=== PATIENT | male | born 1980 | race American Indian/Alaskan Native ===

== ENCOUNTER 2019-09-12 14:45 | Emergency (ER) | payer OTHER ==
[2019-09-12 14:55] VITALS: BP 134/81
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
== END 2019-09-12 17:20 | disposition home or self-care (01) ==
LOC: ED 14:45
DX: S16.1XXA Strain of muscle, fascia and tendon at neck level, initial encounter (principal); S39.012A Strain of muscle, fascia and tendon of lower back, initial encounter; V49.49XA Driver injured in collision with other motor vehicles in traffic accident, initial encounter; Y93.89 Activity, other specified; Y92.410 Unspecified street and highway as the place of occurrence of the external cause; Y99.8 Other external cause status
CPT/HCPCS: 72040; 72100

== ENCOUNTER 2020-08-09 09:51 | Emergency (ER) | payer SELFPAY ==
[2020-08-09 10:06] VITALS: BP 147/87
--- NOTE | 2020-08-09 11:34 | Emergency Department Report ---
- General Chief complaint: Skin/Abscess/Foreign Body Stated complaint: FACIAL SWELLING/PAIN Time Seen by Provider: 08/09/20 10:53 Source: patient Mode of arrival: Ambulatory Limitations: No Limitations - History of Present Illness Initial comments: 40-year-old male with no significant medical history presents department complaining of a mass that developed on his forehead over the last few days with minimal tenderness after having a similar mass to his left cheek which developed and broke open expelling puslike content complaint: abscess/boil Tetanus Up to Date: yes Location: head, face Severity: mild Quality: dull Consistency: constant Improves with: none Worsens with: none Context: none Treatments Prior to Arrival: none - Related Data Previous Rx's Medication Instructions Recorded Last Taken Type Acetaminophen with Codeine 1 each PO Q8H PRN #12 tablet 04/30/15 Unknown Rx [Acetaminophen-Codeine #4 TAB] Ibuprofen [Motrin] 800 mg PO Q8H PRN #15 tablet 04/30/15 Unknown Rx methylPREDNISolone [Medrol Dose 8 mg PO QAM #1 tab.ds.pk 04/30/15 Unknown Rx Santosh] Naproxen Sodium [Anaprox Ds] 550 mg PO BID #14 tablet 09/09/18 Unknown Rx methOCARBAMOL [Robaxin] 750 mg PO Q8H PRN #21 tablet 09/09/18 Unknown Rx Cyclobenzaprine [Flexeril 10 MG 10 mg PO TID PRN #15 tablet 09/12/19 Unknown Rx TAB] Naproxen [Naprosyn] 500 mg PO BID #20 tablet 09/12/19 Unknown Rx Ketorolac [Toradol] 10 mg PO Q6H PRN #10 tablet 08/09/20 Unknown Rx cephALEXin [Keflex] 500 mg PO Q6HR #40 capsule 08/09/20 Unknown Rx Allergies Allergy/AdvReac Type Severity Reaction Status Date / Time No Known Allergies Allergy Unverified 04/30/15 09:34 Abscess Boil HPI - HPI Chief Complaint: Skin/Abscess/Foreign Body Stated Complaint: FACIAL SWELLING/PAIN Time Seen by Provider: 08/09/20 10:53 Home Medications: Previous Rx's Medication Instructions Recorded Last Taken Type Acetaminophen with Codeine 1 each PO Q8H PRN #12 tablet 04/30/15 Unknown Rx [Acetaminophen-Codeine #4 TAB] Ibuprofen [Motrin] 800 mg PO Q8H PRN #15 tablet 04/30/15 Unknown Rx methylPREDNISolone [Medrol Dose 8 mg PO QAM #1 tab.ds.pk 04/30/15 Unknown Rx Santosh] Naproxen Sodium [Anaprox Ds] 550 mg PO BID #14 tablet 09/09/18 Unknown Rx methOCARBAMOL [Robaxin] 750 mg PO Q8H PRN #21 tablet 09/09/18 Unknown Rx Cyclobenzaprine [Flexeril 10 MG 10 mg PO TID PRN #15 tablet 09/12/19 Unknown Rx TAB] Naproxen [Naprosyn] 500 mg PO BID #20 tablet 09/12/19 Unknown Rx Ketorolac [Toradol] 10 mg PO Q6H PRN #10 tablet 08/09/20 Unknown Rx cephALEXin [Keflex] 500 mg PO Q6HR #40 capsule 08/09/20 Unknown Rx Allergies/Adverse Reactions: Allergies Allergy/AdvReac Type Severity Reaction Status Date / Time No Known Allergies Allergy Unverified 04/30/15 09:34 ED Review of Systems ROS: Stated complaint: FACIAL SWELLING/PAIN Other details as noted in HPI Comment: All other systems reviewed and negative ED Past Medical Hx - Past Medical History Previous Medical History?: Yes Additional medical history: Right Achilles tendon injury - Surgical History Past Surgical History?: No - Social History Smoking Status: Never Smoker Substance Use Type: None - Medications Home Medications: Home Medications Medication Instructions Recorded Confirmed Last Taken Type Acetaminophen with Codeine 1 each PO Q8H PRN #12 tablet 04/30/15 Unknown Rx [Acetaminophen-Codeine #4 TAB] Ibuprofen [Motrin] 800 mg PO Q8H PRN #15 tablet 04/30/15 Unknown Rx methylPREDNISolone [Medrol Dose 8 mg PO QAM #1 tab.ds.pk 04/30/15 Unknown Rx Santosh] Naproxen Sodium [Anaprox Ds] 550 mg PO BID #14 tablet 09/09/18 Unknown Rx methOCARBAMOL [Robaxin] 750 mg PO Q8H PRN #21 tablet 09/09/18 Unknown Rx Cyclobenzaprine [Flexeril 10 MG 10 mg PO TID PRN #15 tablet 09/12/19 Unknown Rx TAB] Naproxen [Naprosyn] 500 mg PO BID #20 tablet 09/12/19 Unknown Rx Ketorolac [Toradol] 10 mg PO Q6H PRN #10 tablet 08/09/20 Unknown Rx cephALEXin [Keflex] 500 mg PO Q6HR #40 capsule 08/09/20 Unknown Rx ED Physical Exam - General Limitations: No Limitations General appearance: alert, in no apparent distress - Head Head exam: Present: atraumatic, normocephalic - Expanded Head Exam Expanded 1 - Inclusion cyst to this region with no lymphangitis. No involvement with the lacrimal apparatus. No discharge - Eye Eye exam: Present: normal appearance, PERRL, EOMI Pupils: Present: normal accommodation - ENT ENT exam: Present: normal exam, mucous membranes moist - Neck Neck exam: Present: normal inspection - Respiratory Respiratory exam: Present: normal lung sounds bilaterally. Absent: respiratory distress - Cardiovascular Cardiovascular Exam: Present: regular rate, normal rhythm. Absent: systolic murmur, diastolic murmur, rubs, gallop - GI/Abdominal GI/Abdominal exam: Present: soft, normal bowel sounds - Rectal Rectal exam: Present: deferred - Extremities Exam Extremities exam: Present: normal inspection - Back Exam Back exam: Present: normal inspection - Neurological Exam Neurological exam: Present: alert, oriented X3 - Psychiatric Psychiatric exam: Present: normal affect, normal mood - Skin Skin exam: Present: warm, dry, intact, normal color. Absent: rash ED Course Vital Signs 08/09/20 09:59 Temperature 98.7 F Pulse Rate 89 Respiratory 18 Rate Blood Pressure 147/87 Blood Pressure 147/87 [Right] O2 Sat by Pulse 100 Oximetry ED Medical Decision Making - Medical Decision Making 40-year-old male with inclusion cyst to the forehead with no discharge at present time not involving either of the eyes some mild suggestion of early infection. Treatment on the lacrimal apparatus no periorbital swelling or cellulitis is noted. No lymphangitis. Advised him of the need to follow-up with dermatology or general surgery for definitive treatment of this inclusion cyst Critical care attestation.: If time is entered above; I have spent that time in minutes in the direct care of this critically ill patient, excluding procedure time. ED Disposition Clinical Impression: Inclusion cyst Disposition: DC-01 TO HOME OR SELFCARE Is pt being admited?: No Does the pt Need Aspirin: No Condition: Stable Instructions: Abscess (ED) Additional Instructions: Please follow-up with dermatology or general surgery for removal of your inclusion cyst use he be developing early infection with occasional antibiotics and anti-inflammatories to help. Minimize the swelling in the in the discomfort that is beginning to develop particularly treatment advised with the aforementioned specialist Prescriptions: cephALEXin [Keflex] 500 mg PO Q6HR #40 capsule Ketorolac [Toradol] 10 mg PO Q6H PRN #10 tablet PRN Reason: Pain Referrals: GREGORIA TRUONG MD [Staff Physician] - 3-5 Days RADHA ANGEL MD [Referring] - 3-5 Days RODNEY DAVIS MD [Staff Physician] - 3-5 Days
== END 2020-08-09 12:07 | disposition home or self-care (01) ==
LOC: ED 09:51
DX: L72.0 Epidermal cyst (principal); Z79.899 Other long term (current) drug therapy
CPT/HCPCS: 99282

== ENCOUNTER 2021-06-12 07:26 | Emergency (ER) | payer SELFPAY ==
[2021-06-12 07:56] VITALS: BP 127/91
--- NOTE | 2021-06-12 08:56 | Emergency Department Report ---
Chief Complaint: Skin/Abscess/Foreign Body Stated Complaint: SWOLLEN FACE, Time Seen by Provider: 06/12/21 08:50 - HPI History of Present Illness: 41-year-old -[place] male presents to the emergency room reporting he has had a bump on the right side of his face for the last 2 days. Patient states that it is sore. Patient is taking nothing for his discomfort. Patient also complains of burning with urination for a week. Patient admits to unprotected intercourse. Patient denies any testicular pain or swelling. He states that it stings when he pees. He denies any penile discharge. Patient denies any urinary urgency frequency. He has no past medical history currently takes no meds on a daily basis and has no known drug allergies. - Exam Vital Signs: Vital Signs 06/12/21 07:53 Temperature 98.1 F Pulse Rate 71 Respiratory 18 Rate Blood Pressure 127/91 O2 Sat by Pulse 99 Oximetry Physical Exam: General: Awake, appropriately interactive, no acute distress. Neck: Supple. Full range of motion intact. Cardiovascular: Normal peripheral perfusion. Pulmonary: No respiratory distress. Patient is speaking normally without use of accessory muscles. Skin: lesion right lower face just above the jawline. Papular mildly indurated nonfluctuant nonerythematous Neurological: No facial asymmetry. Speech is clear. Follows commands. Patient is alert and oriented. Musculoskeletal: Full range of motion, no crepitus. No tenderness to palpate nonerythematous no edema test appreciated. Able to bear weight and ambulate without difficulty. Distal neurovascular and motor/sensory function is intact. Psych: Cooperative. Appropriate mood and affect. MSE screening note: Focused history and physical exam performed. Due to findings the following was ordered: 41-year-old -[place] male presents to the emergency room reporting he has had a bump on the right side of his face for the last 2 days. Patient states that it is sore. Patient is taking nothing for his discomfort. Patient also complains of burning with urination for a week. Patient admits to unprotected intercourse. Patient denies any testicular pain or swelling. He states that it stings when he pees. He denies any penile discharge. Patient denies any urinary urgency frequency. He has no past medical history currently takes no meds on a daily basis and has no known drug allergies. Discussed with patient he can follow-up at the health department or urgent care for full STD evaluation. Also discussed with patient for the pimple-like structure on his right side of face face seeking keep his face clean with alcohol at that site. Warm compresses. Nicolas with patient he needs to be sure to wash his face with soap and water and dry it out. Lesion is not fluctuated firm papular lesion. Discussed to increase his fluid intake. Use condoms with intercourse. ED Disposition for MSE Disposition: DC-01 TO HOME OR SELFCARE Is pt being admited?: No Does the pt Need Aspirin: No Condition: Stable Instructions: Acne, [id number] Additional Instructions: Recommend to wash your face twice a day. You can use alcohol to the site of the lesion. Moisturize your skin with a water-based moisturizer. If seems to get worse red or tender and soft in the middle follow-up with a primary care provider. For your dysuria or painful urination recommend to follow-up at the health department for full STD evaluation and she has had unprotected intercourse. They are able to send out a gonorrhea chlamydia do blood work for herpes hepatitis syphilis and HIV. Please refrain from intercourse for the next 2 weeks after you have started your treatment from the health department. [facility] [Outside] - 3-5 Days [facility] [Outside] - 3-5 Days Forms: Work/School Release Form(ED) Time of Disposition: 09:00
== END 2021-06-12 09:48 | disposition home or self-care (01) ==
LOC: ED 07:26
DX: R30.9 Painful micturition, unspecified (principal)
CPT/HCPCS: 99282